=== PATIENT | female | born 1950 | race Caucasian/White ===

== ENCOUNTER 2017-05-04 09:13 | Day surgery (SDC) | payer MEDICARE, OTHER ==
[~2017-05-04] VITALS: Ht 157.5 cm; Wt 114.8 kg
[~2017-05-04 09:13] MED LIST: 0.9% Sodium Chloride 1,000 ML IV SCH; CALC600T12 PO; ESOM40CA41 PO; MULT-1018 PO; NAPR220C11 PO; Sodium Chloride LOK Flush 10 mL Syringe IV PRN; fentaNYL-PF 50 mCg/mL 2 mL Inj IVPUSH PRN
[2017-05-04] MEDS ORDERED: fentaNYL-PF 50 mCg/mL 2 mL Inj IVPUSH ONE (09:14)
[2017-05-04 09:41] VITALS: BP 144/96; PULSE 72; RESP 16; O2SAT 97
[2017-05-04 10:53] VITALS: BP 132/91; PULSE 67; RESP 16; O2SAT 100
--- NOTE | 2017-05-04 10:54 | PCM.ENDEGD ---
EGD Date of Service: May 04, 2017 Physician Jamal García MD Pre Procedure Diagnosis: Abdominal pain and reflux Post Procedure Dx & Findings: Esophageal ulcer Procedure Esophagogastroduodenoscopy PROCEDURE IN DETAIL: After proper sedation, Olympus video endoscope was inserted into patient's mouth and esophagus was successfully intubated. Scope introduced esophagus. Esophagus showed normal shiny whitish mucosa consistent with squamous cell component. Z line was intact at 35 cm from the incisors. The esophagus is one clean base 1 cm ulcer. This was biopsied. Scope further advanced to the stomach. Stomach showed normal shiny mucosa with normal appearing rugae folds without any ulcer mass erosion. On retroflexion, we saw partial Emily wrap. Cardia fundus body antrum pylorus were all visualized. Retroflexion was done. Stomach was easily inflated and deflatable using air. Scope further events to the distal duodenum. Duodenum revealed normal villous structures with normal appearing folds without any mass ulcer erosion. Impression Esophageal ulcer Partial Emily Recommendation Continue Nexium DC all NSAIDs including Aleve Presedation Assessment Risks and Benefits Informed consent was obtained from the patient after all risks and benefits including but not limited to drug reaction, infection, pain, bleeding, perforation, as well as alternatives were discussed. Patient monitoring Continuous pulse oximetry, cardiac monitoring, blood pressure monitoring, IV access, and oxygen at 2L per nasal cannula. Periprocedural Fentanyl: Fentanyl 100mcg Incrementally Midazolam: Midazolam 5mg Incrementally Complications There were no periprocedural complications identified. Post Procedure Plan Post Procedure Recommendations 1. Restrict activities today. 2. Resume normal activities in the morning. 3. Resume medications. 4. GERD behavioral modification: - Avoid fatty, acidic, spicy, large meals - Do not lie down after meals - Do not eat or drink anything for at least 2 1/2 hours before going to bed at night - Discontinue tobacco and alcohol - Decrease or avoid caffeine - Avoid chocolate and mints - Decrease weight - Avoid aspirin and non steroidal anti-inflammatory agents (NSAID) such as Aleve, Advil, Mobic, Naproxen, Ibuprofen, etc 5. Add proton pump inhibitor. Take 30 minutes before 1st meal of the day. 6. Patient informed of normal post procedure side effects as bloating, drowsiness, blood streaking in the stool 7. If gastric biopsy reveal H.pylori, continue with appropriate treatment 8. If small bowel biopsy reveals celiac, continue with appropriate treatment 9. Please don't hesitate to call me with any questions Jamal García MD May 04, 2017 10:54
--- NOTE | 2017-05-04 10:56 | PCM.ENDCOL ---
Colonoscopy Date of Service: May 04, 2017 Physician Jamal García MD Pre Procedure Diagnosis: Screening Post Procedure Dx & Findings: Polyp hemorrhoids and diverticula Procedure Colonoscopy PROCEDURE IN DETAIL: Prep adequate Withdrawal time 10 minutes After unremarkable rectal examination the Olympus video colonoscope was inserted patient's anal canal and was advanced to cecum. Landmarks were identified including the ileocecal valve and appendiceal orifice. Scope was withdrawn systematically. Visualized colonic mucosa showed healthy shiny mucosa with normal healthy-appearing vasculature. Patient had few small diverticula in the sigmoid colon. In the rectum there was a 3 mm polyp which was removed completely using cold snare. In the rectum retroflexion was done which showed hemorrhoids. Anal canal was inspected carefully on the way out and hemorrhoids noted. Impression Polyp 1 status post completely removed Diverticula Hemorrhoids Recommendation Repeat colonoscopy 5 years Diverticular diet Presedation Assessment Risks and Benefits Informed consent was obtained from the patient after all risks and benefits including but not limited to drug reaction, infection, pain, bleeding, perforation, as well as alternatives were discussed. Patient monitoring Continuous pulse oximetry, cardiac monitoring, blood pressure monitoring, IV access, and oxygen at 2L per nasal cannula. Complications There were no periprocedural complications identified. Post Procedure Plan Post Procedure Recommendations 1. Restrict activities today. 2. Resume normal activities in the morning. 3. Resume medications. 4. Patient informed of normal post procedure side effects as bloating, drowsiness, blood streaking in the stool. 5. average risk CRCS. If colon polyps come back as: -Hyperplastic- can repeat colonoscopy in 10 years -Tubular adenoma- repeat colonoscopy in 5 years -Tubulovillous/villous adenoma- repeat colonoscopy in 3 years -If any dysplasia- return to clinic as soon as possible 6. Please don't hesitate to call me with any questions. Jamal García MD May 04, 2017 10:56
[2017-05-04 11:02] VITALS: BP 132/91; PULSE 67; PULSE 77; RESP 14; O2SAT 100; O2SAT 99
[2017-05-04 11:03] VITALS: BP 144/82; PULSE 62; RESP 12; O2SAT 100
--- NOTE | 2017-05-05 15:16 | PATH ---
SURGICAL PATHOLOGY Attending Physician:Jamal García M.D. CASE STATUS: Signed Out PATIENT NAME: SKINNY SOLIS PID: [id number] : 1950 DATE COLLECTED:05/04/2017 17:53 SPECIMEN: 1: Esophagus, Biopsy 2: Rectum, Biopsy CLINICAL HISTORY: 1). ESOPHAGEAL ULCER BIOPSY 2). RECTAL POLYP X1 FINAL DIAGNOSIS: 1.ESOPHAGEAL ULCER BIOPSY: SQUAMOUS MUCOSA AND GASTRIC CARDIA-TYPE MUCOSA WITH CHRONIC ACTIVE INFLAMMATION AND NECROTIC MATERIAL CONSISTENT WITH ULCERATION. PASD STAIN NEGATIVE FOR FUNGI. Negative for evidence of viral inclusions. Nonspecific reactive epithelial changes. 2.RECTAL POLYP: TUBULAR ADENOMA. ICD10 D12.8 GROSS DESCRIPTION: The specimen is received in one formalin filled container labeled with the patient's name, sublabeled "esophageal ulcer" and consists of a 0.2 x 0.2 x 0.2 CM portion of tissue which is entirely submitted in cassette 1A. 2). The specimen is sublabeled "rectal" and consists of a 0.4 x 0.4 x 0.3 CM portion of tissue which is entirely submitted in cassette 2A. 05/04/2017 [facility] MICRO DESCRIPTION: See diagnosis. ICD-9 CODES: CPT CODES: 1: 18906, 00622 2: 73714 Electronically Signed Out Milo Case MD [facility] Pathology [facility] [address], [place] [address] Technical component performed at [facility], [address] [place] [address] [address], [address]
== END 2017-05-04 23:59 | disposition home or self-care (01) ==
LOC: END 09:13
PROVIDERS: ATTEND Internal Medicine
DX: Z12.11 Encounter for screening for malignant neoplasm of colon (principal); D12.8 Benign neoplasm of rectum; K22.10 Ulcer of esophagus without bleeding; K21.9 Gastro-esophageal reflux disease without esophagitis; K57.32 Diverticulitis of large intestine without perforation or abscess without bleeding; K64.9 Unspecified hemorrhoids
CPT/HCPCS: 43239; 45385; 88305; 99153; G0500; J2250; J3010; J7030